=== PATIENT | male | born 1945 | race Caucasian/White ===

== ENCOUNTER → 2018-01-22 10:34 | Outpatient (CLI) | payer OTHER, SELFPAY ==
--- NOTE | 2018-01-22 | DI.RAD.S_ITS ---
PROCEDURE: XR CHEST 2V INDICATIONS: CHRONIC COUGH/WHEEZING TECHNIQUE: 2 views of the chest were acquired. COMPARISON: None. FINDINGS: Surgical changes and devices: External pacer device is noted. Lungs and pleura: No pleural effusions or pneumothorax. Lungs are clear. Mediastinum: Mediastinal contours are normal. Heart size is normal. Bones and chest wall: No suspicious bony abnormalities. Soft tissues appear unremarkable. IMPRESSION: No acute cardiopulmonary findings. Dictated by: Julissa Faith M.D. on 01/22/2018 at 11:49 Approved by: Julissa Faith M.D. on 01/22/2018 at 11:49
--- NOTE | 2018-01-26 14:36 | PM.PFT.1 ---
Pulmonary Function Test Referral & Results Date Patient Seen: 01/22/18 Requesting provider: Santi Wolfe Indication: Cough wheeze Results: The spirometry demonstrates an FVC of 3.70 L which is 93% of predicted. The FEV1 was measured at 3.06 L which is 107% of predicted. The FEV1/FVC ratio was 83 which is 113% of predicted. Following the administration of bronchodilator there was a 27% improvement in FEF 25-75%. Lung volumes show an SVC of 3.82 L which is 90% of predicted. The diffusing capacity was measured at 29.16 which is 90% of predicted. The maximum voluntary ventilation was normal Interpretation: This study is probably normal. There was a slight improvement in small airway flow based on the 20/7% improvement in FEF 25-75% after bronchodilator. This may suggest some very mild element of obstructive lung disease although not apparent on the spirometry or the flow volume loop otherwise.
== END ==
PROVIDERS: PCP Family Medicine; Visit Provider Family Medicine
DX: R05 Cough (principal); R06.2 Wheezing
CPT/HCPCS: 71046; 94060; 94726; 94729

== ENCOUNTER → 2018-02-03 14:53 | Outpatient (CLI) | payer OTHER, SELFPAY ==
--- NOTE | 2018-02-03 | DI.CT.S_ITS ---
PROCEDURE: CT CHEST WO CON INDICATIONS: CHRONIC COUGH TECHNIQUE: Noncontrast 5 mm thick sections acquired from the pulmonary apices to the posterior costophrenic angles. 7 mm thick coronal and sagittal MIP reformats were then acquired. For radiation dose reduction, the following was used: automated exposure control, adjustment of mA and/or kV according to patient size. COMPARISON: [facility], CR, XR CHEST 2V, 01/22/2018, 11:39. FINDINGS: Image quality: Excellent. Lungs and pleura: No acute air space opacities. Mild scattered areas of subpleural thickening can be seen, without henrik nodules identified. No pleural effusions or pneumothorax. Central and peripheral airways are patent and normal in caliber. Mediastinum: Heart size is normal. No pericardial effusion. No mediastinal adenopathy by size criteria. Thoracic aorta and central pulmonary arteries are normal in size. Esophagus is normal in caliber. There is a small hiatal hernia. Bones and chest wall: A left-sided event monitor can be seen. No suspicious bony lesions. No vertebral body compression fractures. No axillary or supraclavicular adenopathy by size criteria. Thyroid gland demonstrates no significant noncontrast abnormality. Abdomen: Visualized upper abdominal solid organs and bowel loops appear normal in the absence of contrast. IMPRESSION: No significant abnormality is seen to explain the patient's presenting history. Incidental note is made of: Left-sided event monitor Small hiatal hernia Dictated by: Martín Whitmore M.D. on 02/03/2018 at 15:37 Approved by: Martín Whitmore M.D. on 02/03/2018 at 15:39
== END ==
PROVIDERS: PCP Family Medicine; Visit Provider Family Medicine
DX: R05 Cough (principal); K44.9 Diaphragmatic hernia without obstruction or gangrene
CPT/HCPCS: 71250

== ENCOUNTER → 2020-10-05 10:33 | Outpatient (CLI) | payer MEDICARE, SELFPAY ==
[2020-10-05 18:45] LABS: Alanine Aminotransferase 23 IU/L (<50); Albumin 3.8 g/dL (3.5-5.0); Albumin Globulin Ratio 1.3 (1.0-2.8); Alkaline Phosphatase 65 U/L (38-126); Aspartate Aminotransferase 36 IU/L (17-59); BUN Creatinine Ratio 22.7 (6-22); Bilirubin Total 0.5 mg/dL (0.2-1.3); Blood Urea Nitrogen 22 mg/dL (9-20); Calcium 9.3 mg/dL (8.4-10.2); Carbon Dioxide 28 mmol/L (22-32); Chloride 104 mmol/L (98-107); Cholesterol 253 mg/dL (140-199); Estimated Glomerular Filt Rate > 60.0 mL/min (>60); Globulin 2.9 g/dL (1.7-4.1); Glucose 99 mg/dL (80-110); HDL Cholesterol 52 mg/dL (40-60); HEMOLYSIS < 15 (0-50); LDL Cholesterol Calculated 170 mg/dL (<100); Potassium 4.8 mmol/L (3.4-5.1); Sodium 137 mmol/L (137-145); Total Protein 6.7 g/dL (6.3-8.2); Triglycerides 156 mg/dL (35-150)
[2020-10-05 18:47] LABS: Add Manual Diff / Slide Review NO; Basophils Absolute Auto 0 /uL (0-100); Basophils Percent Auto 0.5 % (0-2); Eosinophils Absolute Auto 100 /uL (0-450); Eosinophils Percent Auto 1.2 % (2-4); Hematocrit 43.1 % (41-53); Hemoglobin 14.7 g/dL (13.5-17.5); Lymphocytes Absolute Auto 2100 /uL (1100-4500); Mean Corpuscular HGB Conc 34.1 % (30-36); Mean Corpuscular Volume 93.6 fL (80-100); Monocytes Absolute Auto 600 /uL (0-900); Monocytes Percent Auto 8.1 % (3-14); Neutrophils Absolute Auto 4900 /uL (1500-7000); Neutrophils Percent Auto 63.2 % (50-75); Platelet Count 210 X10^3/uL (150-400); Red Cell Distribution Width 12.9 % (11.6-14.8); White Blood Cell Count 7.7 X10^3/uL (4.5-11.0)
[2020-10-05 19:32] LABS: Vitamin B12 872 pg/mL (239-931)
== END ==
PROVIDERS: PCP Physician Assistant; Referring Provider Physician Assistant; Visit Provider Physician Assistant
DX: G62.9 Polyneuropathy, unspecified (principal); K21.9 Gastro-esophageal reflux disease without esophagitis; Z13.6 Encounter for screening for cardiovascular disorders; Z79.01 Long term (current) use of anticoagulants; Z86.73 Personal history of transient ischemic attack (TIA), and cerebral infarction without residual deficits
CPT/HCPCS: 80053; 80061; 82607; 85025

== ENCOUNTER 2021-04-22 18:48 | Emergency (ER) | payer MEDICARE, SELFPAY ==
[2021-04-22 19:08] VITALS: BP 171/77; PULSE 58; RESP 16; TEMP 37; O2SAT 100
--- NOTE | 2021-04-22 19:15 | DI.US.S_ITS ---
PROCEDURE: US PERIPH VENOUS LOW EXTREM RT INDICATIONS: KNEE PAIN TECHNIQUE: Real-time imaging, as well as color and pulse Doppler interrogation, were performed of the lower extremity deep veins from the inguinal ligament to the popliteal fossa. COMPARISON: None. FINDINGS: The common femoral, femoral and popliteal veins are normally compressible, and free of intraluminal thrombus. Color and pulse Doppler demonstrate normal phasic intraluminal flow. There is normal augmentation response to distal compression maneuver. 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 IMPRESSION: Negative right lower extremity duplex venous ultrasound for DVT. A Ramirez cyst is present. Dictated by: Lc Smart M.D. on 04/22/2021 at 20:15 Approved by: Lc Smart M.D. on 04/22/2021 at 20:15
[2021-04-22 21:26] VITALS: BP 169/78; PULSE 67; RESP 16; O2SAT 98
--- NOTE | 2021-04-23 04:16 | ED_ITS ---
HPI - Extremity Injury (Lower) General Chief Complaint: Extremity Injury, Lower Stated Complaint: right leg suspected blood clot Time Seen by Provider: 04/22/21 20:58 Source: patient Mode of arrival: Ambulatory History of Present Illness HPI Narrative: 76-year-old male nonsmoker with history of TIA on Plavix presents with his from his primary care office for evaluation of pain and swelling in his calf and concern for DVT. Patient has been having increasing pain in his posterior knee and calf for the past few days in the absence of any known injury. He denies any fever chills nor chest pain or shortness of breath. He has no redness, warmth or fever. He has been having trouble with his Achilles tendon and had a surgery to repair not long ago and has been walking with an antalgic gait for quite some time. His knee pain is worse with range of motion and palpation and improves with rest. He denies recent travel or injury nor history of clot Related Data Home Medications Medication Instructions Recorded Confirmed aspirin 325 mg tablet,delayed 325 mg PO DAILY 09/12/20 09/12/20 release Previous Rx's Medication Instructions Recorded clopidogrel 75 mg tablet 75 mg PO DAILY #90 tab 09/25/20 omeprazole 40 mg capsule,delayed 40 mg PO DAILY #90 cap 09/25/20 release Review of Systems Review of Systems Narrative: GENERAL: Denies chills, fatigue, malaise, fever, sweats. HEENT: Denies sinus pain, ear pain, sore throat, difficulty swallowing, dizziness. RESPIRATORY: Denies dyspnea, cough, wheezing, hemoptysis, sputum. CARDIOVASCULAR: Denies chest pain, palpitations, orthopnea, edema, GASTROINTESTINAL: Denies nausea, vomiting, abdominal pain, diarrhea, constipation, melena. : Denies dysuria, frequency, incontinence, hematuria, urinary retention. MUSCULOSKELETAL: See HPI SKIN: Denies rash, skin lesions, or other NEUROLOGIC: Denies weakness, headache, numbness, change in speech, confusion, seizures, incoordination. PSYCHIATRIC: No concerning psychosocial issues. 12 point review of systems is negative except for those stated above Patient History Social History Smoking Status: Never smoker Smoking Status: Never smoker Exam Narrative Exam Narrative: GENERAL: [76] year old patient appears stated age. Well-developed patient, in mild distress. HEAD: Atraumatic. Normocephalic. EYES: Pupils equal round and reactive. Extraocular motions intact. No scleral icterus. No injection or drainage. ENT: Nose without bleeding, purulent drainage. Throat without erythema, tonsillar hypertrophy or exudate. Airway patent. NECK: Trachea midline. Non tender CARDIOVASCULAR: Regular rate and rhythm without murmurs, gallops, or rubs. RESPIRATORY: Clear to auscultation. Breath sounds equal bilaterally. No wheezes, rales, or rhonchi. GASTROINTESTINAL: Abdomen soft, non-tender, nondistended. EXTREMITIES: Right knee with some tenderness to palpation in the popliteal fossa. No effusion, erythema or warmth. Patient has painful active range of motion but very minimal pain on passive range of motion. No ligamentous instability or bony point tenderness. Patient does have some pain in his posterior calf with some swelling noted BACK: Nontender without deformity or crepitance. No flank tenderness. NEURO: AOx3. SKIN: No rash or erythema of visible areas Initial Vital Signs Initial Vital Signs: Vital Signs Temperature 98.6 F 04/22/21 19:08 Pulse Rate 58 L 04/22/21 19:08 Respiratory Rate 16 04/22/21 19:08 Blood Pressure 171/77 H 04/22/21 19:08 Pulse Oximetry 100 04/22/21 19:08 Course Vital Signs Vital signs: Vital Signs - 8 hr 04/22/21 21:26 Pulse Rate 67 Respiratory Rate 16 Blood Pressure 169/78 H Pulse Oximetry 98 MDM - Extremity Injury (Lower) Imaging Data US - DVT: Radiologist's Impression: Jayesh Bryant??76??M??1945 ? Allergy/Adv: Not Recorded Close Vascular Ultrasound (Signed) Lc Smart - 04/22/[address] (Signed) Martín Whitmore - 02/03/18 Chest X-Ray (Signed) Julissa Faith - 01/22/18 [facility]ly [facility]?[address] [address] Ultrasound Report Signed Patient: Jayesh Bryant MR#: [id number] : 1945 Acct:[id number] Age/Sex: 76 / M Date of Service: 04/22/21 Loc: ED Accession Number: [id number] ?? Procedure: US periph venous low extrem rt Ordering Provider: Shakeel Urbano D.O. PROCEDURE:? US PERIPH VENOUS LOW EXTREM RT ? INDICATIONS:? KNEE PAIN ? TECHNIQUE:? Real-time imaging, as well as color and pulse Doppler interrogation, were performed of the lower extremity deep veins from the inguinal ligament to the popliteal fossa.? ? COMPARISON:? None. ? FINDINGS:? The common femoral, femoral and popliteal veins are normally compressible, and free of intraluminal thrombus.? Color and pulse Doppler demonstrate normal phasic intraluminal flow.? There is normal augmentation response to distal compression maneuver. ? ? 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 ? IMPRESSION:? ? Negative right lower extremity duplex venous ultrasound for DVT.? A Ramirez cyst is present.? ? Dictated by: Lc Smart M.D. on 04/22/2021 at 20:15 ? ? Approved by: Lc Smart M.D. on 04/22/2021 at 20:15 ? MDM Narrative Medical decision making narrative: Patient with reassuring history and physical exam. There is no noted injury but patient has had abnormal gait due to problems with his Achilles tendon. Ultrasound demonstrates Ramirez cyst and rules out DVT. Other diagnoses including gouty arthritis and septic arthritis considered but thought less likely given lack of significant swelling, pain on passive range of motion, erythema, warmth. Patient given turn precautions and questions have been answered to his apparent satisfaction Discharge Plan Departure Patient Disposition: Home Clinical Impression: Ramirez's cyst Activity Restrictions/Additional Instructions: *You have been diagnosed with [right knee pain, most likely from a Ramirez cyst that was noted on ultrasound. As we discussed your history and physical exam are very reassuring and there is no evidence of a deep blood clot, joint infection or other severe diagnosis. *What to do: *Please continue to take your regular medications as directed. You may take a short course of anti-inflammatories, but as we discussed in the long-term this is ill advised when taking medications such as Plavix and aspirin. [ ] New medication prescriptions sent to your pharmacy: [ ] [ ] New medication written as a paper prescription [ ] No new medications given *Please follow up with your primary care provider in 2-3 days, call for an appointment. Let them know you were seen in the Emergency Department and that we ask that you be seen in follow up. We will electronically transmit a record of today's note if your PCP is in our system *If you do not have a primary care provider please contact [facility] Resource line at [phone]. They will ask some questions about your medical history and help get you set up with a doctor in the community. *Return to Emergency Department if you should have any new, worsening or concerning symptoms, such as [fever greater than 101 F, shaking chills, worsening pain, persistent vomiting or other bothersome symptoms] Prescriptions: No Action clopidogrel 75 mg tablet 75 mg PO DAILY Qty: 90 3RF Rx Instructions: Take one tablet once daily omeprazole 40 mg capsule,delayed release(DR/EC) 40 mg PO DAILY Qty: 90 2RF aspirin 325 mg tablet,delayed release (DR/EC) 325 mg PO DAILY 0RF Referrals: Kapil Kearney MD [Primary Care Provider] - Valentín Nieto MD [Physician] -
== END 2021-04-22 21:27 | disposition home or self-care (01) ==
PROVIDERS: Emergency Provider Emergency Medicine; PCP Family Medicine
DX: M71.21 Synovial cyst of popliteal space [Baker], right knee (principal)
CPT/HCPCS: 93971; 99283

== ENCOUNTER → 2021-05-22 11:33 | Outpatient (CLI) | payer MEDICARE, SELFPAY ==
--- NOTE | 2021-05-22 11:36 | DI.MRI.S_ITS ---
PROCEDURE: MR KNEE RT WO CON INDICATIONS: Pain in right knee TECHNIQUE: Noncontrast sagittal PD fast spin echo and T2 fast spin echo with fat saturation, sagittal 3-D FLASH with fat saturation; coronal T1 spin echo and PD fast spin echo with fat saturation, and axial PD fast spin echo with fat saturation through the knee. COMPARISON: [facility] [place], CR, XR KNEE 4+ VIEWS RIGHT, 05/13/2021, 14:53. FINDINGS: Image quality: Excellent. Menisci: Surfacing signal in the posterior horns of the medial and lateral menisci, compatible with tears. Cruciate ligaments: The anterior and posterior cruciate ligaments appear intact. Medial structures: The medial collateral ligament appears intact. Visualized portions of the pes anserinus tendons appear normal. No abnormal bursal fluid. Lateral structures: The lateral collateral ligament, long and short heads of the biceps femoris tendon appear intact. The popliteus tendon appears normal. Iliotibial band appears normal. Anterior structures: The quadriceps and patellar tendons appear intact. Patellar alignment is normal. No femoral trochlear dysplasia or ventral trochlear prominence. T2 hyperintense signal within the posterior aspect of the infrapatellar fat. Bones and cartilage: No evidence of fracture. T2 hyperintense signal in the superior aspect of the medial patellar facet. Signal heterogeneity with fissuring of the medial femoral condyle and medial patellar facet hyaline cartilage. Joint space: Small to moderate knee joint fluid. A 5.6 x 2.2 x 1.8 cm T2 hyperintense lesion is seen in the popliteal fossa, compatible with a Ramirez cyst. Fluid is seen along the fascia of the medial gastrocnemius. IMPRESSION: 1. Surfacing signal in the posterior horns of the medial and lateral menisci, compatible with tears. 2. Small to moderate joint effusion. 3. Ramirez's cyst as detailed above with fluid along the superficial fascia of the medial gastrocnemius. 4. 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 5. Edema within the posterior aspect of Hoffa's fat pad. Dictated by: Baudilio Elkins M.D. on 05/22/2021 at 12:34 Approved by: Baudilio Elkins M.D. on 05/22/2021 at 12:54
== END ==
PROVIDERS: PCP Family Medicine; Referring Provider Orthopaedic Surgery; Visit Provider Orthopaedic Surgery
DX: M25.461 Effusion, right knee (principal); M25.561 Pain in right knee; M71.21 Synovial cyst of popliteal space [Baker], right knee; M94.261 Chondromalacia, right knee
CPT/HCPCS: 73721